=== PATIENT | female | born 1950 | race African-American/Black ===

== ENCOUNTER 2017-04-07 21:05 | Inpatient (IN) | payer BC, MEDICARE ==
[~2017-04-07 21:05] MED LIST: ISOVUE-370 76%-LOCM 1 ML ONE
[2017-04-07] MEDS ORDERED: Adacel (T-DAP) 0.5 ML VIAL ONE (21:31)
[2017-04-07] MEDS ORDERED: Ondansetron HCl/PF 4 MG/2 ML Vial ONE (21:44)
[2017-04-07] MEDS ORDERED: Morphine 4 MG/ML VIAL ONE ×2 (21:44→23:07)
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
[2017-04-07 21:50] LABS: #Eosinphils 0.1 thou/uL (0.0-0.7); #Lymphocytes 1.7 thou/uL (1.20-3.40); #Monocytes 0.7 thou/uL (0.11-0.59); #Neutrophils 8.2 thou/uL (1.40-6.50); %Basophils 0.1 % (0.0-1.0); %Eosinophils 0.8 % (0.0-10.0); %Lymphocytes 15.9 % (21.0-51.0); %Monocytes 6.9 % (0.0-10.0); Hematocrit 37.1 % (36.0-47.0); White Blood Cell (WBC) Count 10.7 thou/uL (4.8-10.8)
[2017-04-07 21:58] LABS: ALT (SGPT) 51 U/L (8-55); AST (SGOT) 96 U/L (5-34); Alkaline Phosphatase 136 U/L (40-150); Anion Gap 13 mmol/L (10-20); BUN (Urea Nitrogen) 23 mg/dL (9.8-20.1); Bilirubin, Total 0.3 mg/dL (0.2-1.2); Calc. Creatinine Clearance 0 mL/min (70-130); Calcium 9.1 mg/dL (7.8-10.44); Carbon Dioxide 29 mmol/L (23-31); Chloride 100 mmol/L (98-107); Estimated GFR-MDRD 35; Globulin 3.6 g/dL (2.4-3.5); Lipase 52 U/L (8-78); Protein, Total 7.3 g/dL (6.0-8.3)
[2017-04-07 22:39] LABS: Bilirubin Negative (Negative); Blood, Urine Small (Negative); Glucose, Urine (Dipstick) Negative (Negative); Ketone, Urine Negative (Negative); Nitrite Negative (Negative); Protein, Urine (Dipstick) Negative (Neg-Trace); Urobilinogen 0.2 mg/dL (0.2-1.0)
[2017-04-07 22:40] LABS: Bacteria/HPF None Seen HPF (None Seen); Hyaline Casts/LPF 0-3 HYALINE CAST LPF (0-3 Hyaline); Squamous Epithelial None Seen HPF (0-3); WBC/HPF 0-3 HPF (0-3)
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
[2017-04-07 23:44] LABS: PTT 26.8 SEC (22.9-36.1); Prothrombin Time 14.1 SEC (12.0-14.7)
[2017-04-08] MEDS ORDERED: Sodium Chloride 0.9% 1,000 ML IV SCH (00:57)
[2017-04-08] MEDS ORDERED: Dextrose 50% Abboject 50 ML SYRINGE SLOW IVP PRN (00:57)
[2017-04-08] MEDS ORDERED: Promethazine HCl 25 MG/ML VIAL IM PRN (00:57)
[2017-04-08] MEDS ORDERED: Rib Fracture Protocol IV SCH (00:57)
[2017-04-08] MEDS ORDERED: HumaLOG 300 UNITS/3 ML VIAL SC PRN (00:57)
[2017-04-08] MEDS ORDERED: Dextrose 5% in Water 1,000 ML IV PRN (00:57)
[2017-04-08] MEDS ORDERED: Ondansetron HCl/PF 4 MG/2 ML Vial IVP PRN (00:57)
[2017-04-08] MEDS ORDERED: Ondansetron ODT 4 MG TAB PO PRN (00:57)
[2017-04-08] MEDS ORDERED: Ketorolac Tromethamine 30 MG/ML VIAL IVP SCH ×3 (01:45→18:00)
[2017-04-08 02:38] VITALS: BMI 29.2
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
[2017-04-08 05:18] LABS: Anion Gap 16 mmol/L (10-20); BUN (Urea Nitrogen) 23 mg/dL (9.8-20.1); Calc. Creatinine Clearance 53 mL/min (70-130); Calcium 8.9 mg/dL (7.8-10.44); Carbon Dioxide 26 mmol/L (23-31); Chloride 105 mmol/L (98-107); Estimated GFR-MDRD 58; Magnesium 2.4 mg/dL (1.6-2.6); Phosphorus 3.6 mg/dL (2.3-4.7)
[2017-04-08 05:23] LABS: Amphetamine Not Detected (NotDetected); Methadone Detected (NotDetected); Methamphetamine Not Detected (NotDetected)
[2017-04-08] MEDS: Acetaminophen 650 MG Suppository PR SCH ×2 (06:18→12:17)
[2017-04-08] MEDS: Ketorolac Tromethamine 30 MG/ML VIAL IVP SCH ×2 (06:20→12:16)
[2017-04-08 07:29] LABS: Hematocrit 30.2 % (36.0-47.0); Red Blood Cell (RBC) Count 3.78 mill/uL (4.20-5.40); White Blood Cell (WBC) Count 8.9 thou/uL (4.8-10.8)
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
[2017-04-08 07:49] LABS: Band 10 % (5-11); Hypochromia SLIGHT = 6-15 cells (100X) (0-5/hpf); Microcytosis SLIGHT = 6-15 cells (100X) (0-5/hpf); Neutrophil 75 % (42-75); Ovalocytes SLIGHT = 2-5 cells (100X) (0-1/hpf); Polychromasia SLIGHT = 2-3 cells (100X) (0-2/hpf); Target Cells SLIGHT = 2-5 cells (100X) (0-1/hpf)
[2017-04-08] MEDS ORDERED: Famotidine/PF 20 mg/2ml Vial SLOW IVP SCH (09:00)
--- NOTE | 2017-04-08 09:57 | CT ---
PRELIMINARY REPORT/[facility]/EMERGENCY AFTER HOURS PROCEDURE: EXAM: CT Head Without Intravenous Contrast CLINICAL HISTORY: 66 years old, female; Condition or disease; Other: Sdh; Patient HX: F/u falcine sdh TECHNIQUE: Axial computed tomography images of the head/brain without intravenous contrast. COMPARISON: CT Brain WO Con 2017-04-07 21:19 FINDINGS: Brain: There has been no significant change in the small subdural hemorrhage along the falx. Age appr opriate atrophy and small vessel ischemic change. No mass effect, midline shift or extra axial fluid collections. Bose-white matter differentiation is normal. Ventricles: Unremarkable. No ventriculomegaly. Bones/joints: Unremarkable. No acute fracture. Soft tissues: Unremarkable. Sinuses: Unremarkable as visualized. No acute sinusitis. Mastoid air cells: Unremarkable as visualized. No mastoid effusion. Orbits: The patient has had bilateral lens replacement surgery. IMPRESSION: Stable subdural hemorrhage along the mid falx. Thank you for allowing us to participate in the care of your patient. Dictated and Authenticated by: Brian Benjamin MD 04/08/2017 5:43 AM Central Time ([place] & [place]) FINAL REPORT HEAD CT WITHOUT CONTRAST: DATE: 04/08/17. COMPARISON: 04/07/17. HISTORY: Reevaluate small subdural hematoma. FINDINGS: I agree with the preliminary [facility] report. Imaged paranasal sinuses/mastoid air cells are well aerat ed. There is no displaced calvarial fracture. There is a linear area of hyperdensity along the midline falx seen on images 17 through 19, unchanged , suggesting a tiny stable subdural hematoma. No midline shift or mass effect. No additional hemorr jossue appreciated. IMPRESSION: Stable tiny subdural hemorrhage along the midline falx. POS: [facility]
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
[2017-04-08] MEDS ORDERED: Rib Fracture Protocol PO SCH (13:00)
[2017-04-08] MEDS: ATROPINE 1% EA EYE SCH ×3 (13:39→21:02)
[2017-04-08] MEDS: PREDNISOLONE 1% EA EYE SCH (13:41)
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
[2017-04-08] MEDS: Gabapentin 100 MG CAP PO SCH ×2 (14:55→21:00)
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
[2017-04-08] MEDS ORDERED: Bupivacaine HCl 0.5%/Epinephrine 1:200,000/PF 30 ml Vial IJ SCH (17:15)
[2017-04-08] MEDS ORDERED: Lidocaine 1% w/Epinephrine 1:200K 30 ML VIAL FS SCH (17:30)
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
[2017-04-08] MEDS: Acetaminophen 500 MG TAB PO SCH (17:53)
[2017-04-08] MEDS: traMADol HCl 50 MG TAB PO SCH (17:53)
[2017-04-08] MEDS ORDERED: Acetaminophen 650 MG Suppository PR SCH (18:00)
--- NOTE | 2017-04-08 18:01 | RAD ---
PORTABLE CHEST: 04/08/17 HISTORY: Assess chest tube placement. Pneumothorax. COMPARISON: Comparison made to exam of 4:25 p.m. FINDINGS/IMPRESSION: A left chest tube has been placed. Tip overlies the left apical region. No significant pneumothorax i dentified on this study. Numerous left rib fractures again noted. Both lungs appear welle aerated and clear. POS: [facility]
[2017-04-08] MEDS: Ibuprofen 600 MG TAB PO SCH (18:05)
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
[2017-04-08] MEDS: traZODone HCl 50 MG TAB PO SCH (20:57)
[2017-04-08] MEDS: Potassium Chloride 10 MEQ TAB PO SCH (20:57)
[2017-04-08] MEDS: Sucralfate 1 GM TAB PO SCH (20:57)
[2017-04-08] MEDS: METHadone HCl 10 MG TAB PO SCH (20:57)
[2017-04-08] MEDS: Pregabalin 75 MG CAP PO SCH (20:59)
[2017-04-08] MEDS: Mirtazapine 15 MG TAB PO SCH (21:00)
[2017-04-08] MEDS: Ondansetron ODT 4 MG TAB PO SCH (21:00)
[2017-04-08] MEDS ORDERED: Atropine Sulfate 1% Ophth Soln 5 ml Bottle EA EYE SCH (21:00)
[2017-04-08] MEDS: Atorvastatin Calcium 40 MG TAB PO SCH (21:00)
[2017-04-08] MEDS: Montelukast Sodium 10 mg Tablet PO SCH (21:00)
[2017-04-08] MEDS: Ferrous Sulfate 325 MG TAB PO SCH (21:00)
[2017-04-08] MEDS ORDERED: TAPENTADOL HCL 75 MG PO SCH (21:00)
[2017-04-08] MEDS: Topiramate 25 MG TAB PO SCH (21:01)
--- NOTE | 2017-04-08 21:56 | OP ---
PREOPERATIVE DIAGNOSES: Concussion of atlanto-occipital ligamentous injury, bilateral rib fractures, left clavicle fracture, left hemopneumothorax progress since this morning to 40% pneumothorax, and a tube thoracostomy. POSTOPERATIVE DIAGNOSES: Concussion of atlanto-occipital ligamentous injury, bilateral rib fractures , left clavicle fracture, left hemopneumothorax progress since this morning to 40% pneumothorax, and need a tube thoracostomy. PROCEDURE: Left tube thoracostomy 32 Romanian. SURGEON: Dr. Kevin Escalante. ANESTHESIA: 1% Xylocaine with epinephrine, 30 mL, mixed with 0.5% Marcaine without epinephrine, 30 m L. DESCRIPTION OF PROCEDURE: The patient is at bedside, left lower chest, sterile technique used to pre pare the area with ChloraPrep and draped in routine fashion. Local anesthetic infiltrated into skin and subcutaneous tissue about the operative site. Transverse skin incision made at the seventh inter costal space, carried down through the skin and subcutaneous tissue and a subcutaneous tunnel created cephalad and local anesthetic infiltrated in the intercostal spaces proximally fifth intercostal. A blunt clamp was used to enter the left chest appreciating a ruiz of air and some bloody drainage. T his was opened by aspirating the clamp and a 32 Romanian chest tube placed, directed apically and poste riorly and then the wound closed with interrupted vertical mattress sutures of 0 silk, securing the t ube with 0 silk suture and sterile dressings applied. Patient tolerated the procedure well. Chest x -ray confirmed good tube placement.
[2017-04-09] MEDS: Acetaminophen 500 MG TAB PO SCH ×4 (00:21→17:59)
[2017-04-09] MEDS: traMADol HCl 50 MG TAB PO SCH ×4 (00:21→18:00)
[2017-04-09] MEDS: Ibuprofen 600 MG TAB PO SCH ×4 (00:21→18:02)
[2017-04-09 04:50] LABS: #Lymphocytes 0.9 thou/uL (1.20-3.40); #Monocytes 0.5 thou/uL (0.11-0.59); #Neutrophils 3.3 thou/uL (1.40-6.50); %Basophils 0.6 % (0.0-1.0); %Eosinophils 0.6 % (0.0-10.0); %Lymphocytes 19.1 % (21.0-51.0); %Monocytes 9.8 % (0.0-10.0); Hematocrit 26.3 % (36.0-47.0); Mean Platelet Volume 8.9 fL (7.4-10.4); Red Blood Cell (RBC) Count 3.22 mill/uL (4.20-5.40); White Blood Cell (WBC) Count 4.8 thou/uL (4.8-10.8)
[2017-04-09 05:11] LABS: Anion Gap 10 mmol/L (10-20); BUN (Urea Nitrogen) 17 mg/dL (9.8-20.1); Calc. Creatinine Clearance 71 mL/min (70-130); Calcium 8.7 mg/dL (7.8-10.44); Carbon Dioxide 30 mmol/L (23-31); Chloride 102 mmol/L (98-107); Estimated GFR-MDRD 81; Magnesium 2.2 mg/dL (1.6-2.6); Phosphorus 3.2 mg/dL (2.3-4.7)
[2017-04-09 05:15] LABS: Critical Call Chemistry NUR.MGD@0515
[2017-04-09] MEDS ORDERED: Potassium Chloride 20 MEQ TAB PO SCH (08:00)
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
[2017-04-09] MEDS: Potassium Chloride 10 MEQ TAB PO SCH ×2 (08:38→21:06)
[2017-04-09] MEDS: Ferrous Sulfate 325 MG TAB PO SCH ×2 (08:40→21:01)
[2017-04-09] MEDS: METHadone HCl 10 MG TAB PO SCH ×3 (08:40→21:03)
[2017-04-09] MEDS: Magnesium Oxide 400 MG TAB PO SCH (08:41)
[2017-04-09] MEDS: Ondansetron ODT 4 MG TAB PO SCH ×2 (08:41→21:05)
[2017-04-09] MEDS: Loratadine 10 MG TAB PO SCH (08:41)
[2017-04-09] MEDS: Pregabalin 75 MG CAP PO SCH ×3 (08:41→21:06)
[2017-04-09] MEDS: Potassium Chloride 20 MEQ TAB PO SCH ×2 (08:41→18:00)
[2017-04-09] MEDS: Gabapentin 100 MG CAP PO SCH ×3 (08:41→21:02)
[2017-04-09] MEDS: Furosemide 40 MG TAB PO SCH (08:41)
[2017-04-09] MEDS: Sucralfate 1 GM TAB PO SCH ×2 (08:42→21:07)
[2017-04-09] MEDS: PREDNISOLONE 1% EA EYE SCH (08:44)
[2017-04-09] MEDS: ATROPINE 1% EA EYE SCH ×4 (08:44→21:14)
[2017-04-09] MEDS ORDERED: DESIPRAMINE HCL 10 MG PO SCH (09:00)
[2017-04-09] MEDS ORDERED: [UNRECOGNIZED DRUG - OTHER] OP SCH (09:00)
[2017-04-09] MEDS ORDERED: PREDNISOLONE ACETATE OP SCH (09:00)
[2017-04-09] MEDS ORDERED: NEPAFENAC OP SCH (09:00)
--- NOTE | 2017-04-09 09:56 | RAD ---
PORTABLE AP CHEST: Date: 04/09/17 HISTORY: Follow-up evaluation. Left-sided thoracostomy tube in place. Left pneumothorax. Left-sided rib fractu res. COMPARISON: 04/07/17. FINDINGS: Left-sided thoracostomy tube remains in place and unchanged in position. No pneumothorax is seen. Mul tiple upper left-sided rib fractures are again seen. Fracture of the distal left clavicle is also aga in present. There is minimal subcutaneous emphysema left lateral chest. Right lung remains clear. Car diac silhouette and pulmonary vasculature are within normal limits. There has been no interval change from the prior exam. IMPRESSION: Stable chest. POS: [facility]
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
--- NOTE | 2017-04-09 14:42 | PRG ---
DATE OF SERVICE: 04/09/2017 NEUROSURGERY PROGRESS NOTE SUBJECTIVE: I saw Ms. Campbell this morning. She is starting her second hospital day with us. She kramer d an MRI scan yesterday and I have reviewed it. Ms. Campbell is feeling well. Her neck is not terribl y sore and she is neurologically intact. She has a chest tube placed for pneumothorax yesterday. This morning, Ms. Campbell is awake and alert. Her vitals are stable. Her neurological examination is completely normal. Her lower cranial nerves are intact and there is no lateralizing motor or sensor y deficits. I reviewed the MRI scan of cervical spine. The apical membrane is definitively intact and apical lig ament is intact. There is no avulsion associated with the alar ligaments. The occipital condyle fra cture is nondisplaced and all mid sagittal measurements are within the range of normal. There is extra fluid in the C1-C2 lateral joints, and there may be increased T2 signal and there is a pical ligament, but the fibers appear to be intact. I had a long discussion with Ms. Campbell. If we miss atlanto-occipital dislocation, this could be a f atal condition. However, she is minimally painful with a head motion. All the CT measurements are w ithin normal limits and the MRI scan may be showing a sprain rather than an avulsion of ligamentous s upport structures. If she is capable of healing this on its own, that is a much better outcome for h er and occipital cervical fusion. An occipital plate C1 and C2 screws would be the treatment of ribera ce if we were concerned about a yocasta atlanto-occipital dislocation, but I am not terribly concerned about that. She will, however, need follow up with her neurosurgeon locally. Her mentioned that he sees a neurosurgeon for his sciatic pain, , in [place], [place]. If Ms. Campbell is stil l here on Thursday, I will try to make calls to that office to ensure that we have continuity of care.
[2017-04-09] MEDS: Atorvastatin Calcium 40 MG TAB PO SCH (21:01)
[2017-04-09] MEDS: Insulin Detemir 100 UNITS/ML 5 UNITS in Pre-Filled Syringe 1 EACH SC SCH (21:02)
[2017-04-09] MEDS: Mirtazapine 15 MG TAB PO SCH (21:05)
[2017-04-09] MEDS: Montelukast Sodium 10 mg Tablet PO SCH (21:05)
[2017-04-09] MEDS: Topiramate 25 MG TAB PO SCH (21:07)
[2017-04-09] MEDS: traZODone HCl 50 MG TAB PO SCH (21:07)
[2017-04-10] MEDS: traMADol HCl 50 MG TAB PO SCH ×4 (00:05→18:22)
[2017-04-10] MEDS: Ibuprofen 600 MG TAB PO SCH ×4 (00:05→18:22)
[2017-04-10] MEDS: Acetaminophen 500 MG TAB PO SCH ×4 (00:05→18:23)
[2017-04-10 05:27] LABS: #Eosinphils 0.1 thou/uL (0.0-0.7); #Lymphocytes 0.8 thou/uL (1.20-3.40); #Monocytes 0.4 thou/uL (0.11-0.59); #Neutrophils 4.1 thou/uL (1.40-6.50); %Basophils 0.2 % (0.0-1.0); %Eosinophils 1.6 % (0.0-10.0); %Lymphocytes 15.2 % (21.0-51.0); %Monocytes 7.2 % (0.0-10.0); Hematocrit 25.6 % (36.0-47.0); Red Blood Cell (RBC) Count 3.13 mill/uL (4.20-5.40); White Blood Cell (WBC) Count 5.4 thou/uL (4.8-10.8)
[2017-04-10 05:33] LABS: Hemoglobin A1c 5.5 % (4.0-6.0)
[2017-04-10 05:46] LABS: Anion Gap 10 mmol/L (10-20); BUN (Urea Nitrogen) 17 mg/dL (9.8-20.1); Calc. Creatinine Clearance 64 mL/min (70-130); Calcium 8.9 mg/dL (7.8-10.44); Carbon Dioxide 29 mmol/L (23-31); Chloride 102 mmol/L (98-107); Estimated GFR-MDRD 72
--- NOTE | 2017-04-10 07:59 | PRG ---
DATE OF SERVICE: 04/10/2017 Ms. Campbell is a 66-year-old female who I saw in her room this morning. She is still in her cervical collar and a [place] collar has been ordered from [facility] that she can wear in t he shower. She has 4/5 strength in bilateral upper extremities with no dermatomal sensory loss in th e upper extremities. She has an atlanto-occipital fracture dislocation, this is approximately 5 [address] o n her CT scan admission. This will likely be something that we can treat in a cervical collar over t he course of 8-12 weeks. Her vital signs overnight have been stable. There were no acute events ove rnight. There are no new neurologic deficits on exam. If there are any further questions, please feel free to contact Neurosurgery.
[2017-04-10 08:41] LABS: Magnesium 2.2 mg/dL (1.6-2.6); Phosphorus 2.8 mg/dL (2.3-4.7)
[2017-04-10] MEDS: Pregabalin 75 MG CAP PO SCH ×3 (09:13→21:52)
[2017-04-10] MEDS: Ondansetron ODT 4 MG TAB PO SCH ×2 (09:13→23:51)
[2017-04-10] MEDS: Potassium Chloride 10 MEQ TAB PO SCH ×2 (09:15→21:56)
[2017-04-10] MEDS: Ferrous Sulfate 325 MG TAB PO SCH ×2 (09:16→21:53)
[2017-04-10] MEDS: Furosemide 40 MG TAB PO SCH (09:16)
[2017-04-10] MEDS: Loratadine 10 MG TAB PO SCH (09:16)
[2017-04-10] MEDS: Senokot 8.6 MG TAB PO SCH (09:16)
[2017-04-10] MEDS: Docusate 100 MG CAP PO SCH (09:16)
[2017-04-10] MEDS: Sucralfate 1 GM TAB PO SCH ×2 (09:17→21:55)
[2017-04-10] MEDS: METHadone HCl 10 MG TAB PO SCH ×3 (09:17→21:53)
[2017-04-10] MEDS: Magnesium Oxide 400 MG TAB PO SCH (09:17)
[2017-04-10] MEDS: Gabapentin 100 MG CAP PO SCH ×3 (09:17→21:56)
[2017-04-10] MEDS: PREDNISOLONE 1% EA EYE SCH (09:19)
[2017-04-10] MEDS: ATROPINE 1% EA EYE SCH ×4 (09:19→21:58)
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
--- NOTE | 2017-04-10 10:37 | PRG ---
DATE OF SERVICE: 04/10/2017 I saw Ms. Campbell in her room on the surgical floor this morning. She and her were resting as I entered the room. She wakes up easily and answers questions. She is neurologically intact. Ms. Campbell has aches and pains from her clavicle fracture. She has low back pain, but she was able to ge t up yesterday. She stood for a while and she could feel the floor. She kept her balance. She is h appy with her mobilization. Ms. Campbell does not complain much about neck pain. She is rotating her head in the collar and this d oes not cause any discomfort to her. Although, I have some concern about the ligamentous structures at the craniocervical junction and the atlantoaxial joint, I do believe that the ligaments are still intact, and I would like to give her a chance to heal this without an occipital cervical fusion. Dr. Diaz in [place], [place] is the local neurosurgeon and knows her . I will make contact wi th his office on Thursday to arrange followup for her. She will need upright x-rays before leaving the hospital to ensure the craniocervical relationship is maintained in an upright position.
--- NOTE | 2017-04-10 10:44 | RAD ---
FRONTAL RADIOGRAPH CHEST: Date: 04-10-17 Comparison: 04-09-17 History: Pneumothorax. FINDINGS: There are numerous left sided rib fractures noted, as seen on recent CT of the chest. There is a dist al left clavicle fracture as well. There is a left sided chest tube present. Heart and mediastinal contours are stable. No discrete pneumothorax is evident on the left. IMPRESSION: Stable appearance of the chest. POS: [facility]
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
--- NOTE | 2017-04-10 17:07 | RAD ---
CHEST ONE VIEW 04/10/17 HISTORY: Chest tube removal. COMPARISON: Chest one view same day. FINDINGS: Interval removal of the left thoracostomy tube with a trace left apical pneumothorax. Multiple left s ided rib fractures with small hemothorax. There is a fracture of the distal left clavicle into the ba se of the right coracoid process. IMPRESSION: Interval removal of the thoracostomy tube with trace left apical pneumothorax. POS: [facility]
[2017-04-10] MEDS: Topiramate 25 MG TAB PO SCH (21:53)
[2017-04-10] MEDS: Atorvastatin Calcium 40 MG TAB PO SCH (21:53)
[2017-04-10] MEDS: traZODone HCl 50 MG TAB PO SCH (21:53)
[2017-04-10] MEDS: Montelukast Sodium 10 mg Tablet PO SCH (21:55)
[2017-04-10] MEDS: Mirtazapine 15 MG TAB PO SCH (21:57)
[2017-04-10] MEDS: Insulin Detemir 100 UNITS/ML 5 UNITS in Pre-Filled Syringe 1 EACH SC SCH (22:13)
[2017-04-11] MEDS: Ibuprofen 600 MG TAB PO SCH ×4 (01:22→18:18)
[2017-04-11] MEDS: traMADol HCl 50 MG TAB PO SCH ×4 (01:23→18:18)
[2017-04-11] MEDS: Acetaminophen 500 MG TAB PO SCH ×4 (01:23→18:19)
[2017-04-11] MEDS: Pregabalin 75 MG CAP PO SCH ×3 (08:41→22:07)
[2017-04-11] MEDS: Loratadine 10 MG TAB PO SCH (08:42)
[2017-04-11] MEDS: Sucralfate 1 GM TAB PO SCH ×2 (08:42→22:09)
[2017-04-11] MEDS: METHadone HCl 10 MG TAB PO SCH ×3 (08:43→22:09)
[2017-04-11] MEDS: Docusate 100 MG CAP PO SCH (08:43)
[2017-04-11] MEDS: Potassium Chloride 10 MEQ TAB PO SCH ×2 (08:43→22:08)
[2017-04-11] MEDS: Gabapentin 100 MG CAP PO SCH ×3 (08:43→22:09)
[2017-04-11] MEDS: Furosemide 40 MG TAB PO SCH (08:43)
[2017-04-11] MEDS: Senokot 8.6 MG TAB PO SCH (08:43)
[2017-04-11] MEDS: Ferrous Sulfate 325 MG TAB PO SCH ×2 (08:43→22:09)
[2017-04-11] MEDS: Ondansetron ODT 4 MG TAB PO SCH ×2 (08:44→22:08)
[2017-04-11] MEDS: PREDNISOLONE 1% EA EYE SCH (09:46)
[2017-04-11] MEDS: ATROPINE 1% EA EYE SCH ×4 (09:46→22:10)
[2017-04-11] MEDS: Magnesium Oxide 400 MG TAB PO SCH (09:50)
--- NOTE | 2017-04-11 10:49 | PRG ---
DATE OF SERVICE: 04/11/2017 SUBJECTIVE: I saw Ms. Campbell this morning. She started her fourth hospital day with us. Yesterday' s x-rays showed normal configuration of the craniocervical junction. These were done in a collar. S he is going to remain in a collar for the next 8 weeks. From a neurosurgical perspective, she can go any time. She will need to follow up with her local neurosurgeon in [place], [place], Dr. Diaz. Our office will try to make contact with his office on Thursday. Before leaving, she should have a dis k with all her imaging studies and take that with her.
--- NOTE | 2017-04-11 11:08 | PRG ---
DATE OF SERVICE: 04/11/2017 Ms. Campbell is a 66-year-old female who I saw this morning. This morning, she has a hemoglobin of 8.4 , red blood cell count is 3.13, hematocrit is 25.7. Her platelet count is 124. She is sitting up in her chair when I came in this morning with a cervical collar in place. She has no new neurologic de ficits on exam. She will be following up with Dr. Diaz in [place], [place]. He is the local neurosu rgeon that knows her . She will follow up with him with upright x-rays before leaving the [facility] to ensure craniocervical relationship was maintained in the upright position. She continued to mobilize today. She complains of some trapezius and shoulder pain bilaterally today in which she is receiving some muscle relaxants for. If there are any further questions, please feel free to contact Neurosurgery.
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
--- NOTE | 2017-04-11 15:26 | RAD ---
PORTABLE AP CHEST XRAY: DATE: 04/11/17. HISTORY: Followup chest tube removal. COMPARISON: 04/10/17. FINDINGS: Multiple mildly displaced left-sided rib fractures are again seen. Small left pleural effusion is ag ain noted. No definite pneumothorax is appreciated on this exam. The right lung is clear. Cardiac silhouette and pulmonary vasculature are within normal limits. Fracture of the distal left clavicle is again seen. No other interval change. IMPRESSION: 1. Multiple left-sided rib fractures with tiny left pleural effusion. A definite pneumothorax is no t delineated on this exam. 2. Stable distal left clavicle fracture. POS: [facility]
[2017-04-11] MEDS: traZODone HCl 50 MG TAB PO SCH (22:07)
[2017-04-11] MEDS: Montelukast Sodium 10 mg Tablet PO SCH (22:07)
[2017-04-11] MEDS: Atorvastatin Calcium 40 MG TAB PO SCH (22:08)
[2017-04-11] MEDS: Mirtazapine 15 MG TAB PO SCH (22:08)
[2017-04-11] MEDS: Topiramate 25 MG TAB PO SCH (22:09)
[2017-04-11] MEDS: Insulin Detemir 100 UNITS/ML 5 UNITS in Pre-Filled Syringe 1 EACH SC SCH (22:10)
[2017-04-12] MEDS: Ibuprofen 600 MG TAB PO SCH ×4 (00:43→17:46)
[2017-04-12] MEDS: traMADol HCl 50 MG TAB PO SCH ×4 (00:43→17:46)
[2017-04-12] MEDS: Acetaminophen 500 MG TAB PO SCH ×4 (00:43→17:46)
--- NOTE | 2017-04-12 07:58 | RAD ---
PORTABLE AP CHEST XRAY: DATE: 04/12/17. HISTORY: Followup pneumothorax. Patient with left-sided rib fractures. COMPARISON: 04/11/17. FINDINGS: Again noted are multiple left-sided rib fractures with probable tiny left pleural effusion again pres ent. No obvious pneumothorax is delineated on this examination. Right lung remains clear. Cardiac silhouette and pulmonary vasculature are within normal limits. There is increased density in the lef t hilar region, this is likely related to slight patient rotation and accentuation of pulmonary vascu lature. This is a stable finding compared to multiple prior chest x-rays. No other interval change. IMPRESSION: Multiple left-sided rib fractures and tiny left pleural effusion. No definite pneumothorax is visual ized. POS: SUSANA
[2017-04-12] MEDS ORDERED: Meclizine HCl 25 MG TAB PO PRN (09:17)
--- NOTE | 2017-04-12 09:27 | PRG ---
NEUROSURGERY PROGRESS NOTE DATE OF SERVICE: 04/12/2017 Ms. Campbell got up yesterday with the assistance of Physical Therapy and had better day walking than t he previous day. She is starting to feel more comfortable about taking care of herself at home. She continues to wear her cervical collar as instructed. Ms. Campbell will need a [place] collar for showers and a [place] J collar for the rest of the time. The collars can be changed only when she is flat in bed and her head is kept straight. She will ne ed to wear these for 2 months, in my opinion. I am going to speak with her local neurosurgeon about followup. This is Dr. Diaz in [place], [place].
[2017-04-12 09:29] LABS: #Eosinphils 0.1 thou/uL (0.0-0.7); #Lymphocytes 0.6 thou/uL (1.20-3.40); #Monocytes 0.3 thou/uL (0.11-0.59); #Neutrophils 4.4 thou/uL (1.40-6.50); %Basophils 0.3 % (0.0-1.0); %Eosinophils 2.3 % (0.0-10.0); %Lymphocytes 11.4 % (21.0-51.0); %Monocytes 5.5 % (0.0-10.0); Hematocrit 29.5 % (36.0-47.0); Mean Platelet Volume 8.7 fL (7.4-10.4); Red Blood Cell (RBC) Count 3.57 mill/uL (4.20-5.40); White Blood Cell (WBC) Count 5.5 thou/uL (4.8-10.8)
[2017-04-12] MEDS: Pregabalin 75 MG CAP PO SCH ×3 (09:30→19:59)
[2017-04-12] MEDS: Potassium Chloride 10 MEQ TAB PO SCH ×2 (09:31→20:00)
[2017-04-12] MEDS: Ferrous Sulfate 325 MG TAB PO SCH ×2 (09:31→19:59)
[2017-04-12] MEDS: Gabapentin 100 MG CAP PO SCH ×3 (09:32→19:59)
[2017-04-12] MEDS: Loratadine 10 MG TAB PO SCH (09:33)
[2017-04-12] MEDS: Magnesium Oxide 400 MG TAB PO SCH (09:33)
[2017-04-12] MEDS: Docusate 100 MG CAP PO SCH (09:33)
[2017-04-12] MEDS: Senokot 8.6 MG TAB PO SCH (09:33)
[2017-04-12] MEDS: Furosemide 40 MG TAB PO SCH (09:33)
[2017-04-12] MEDS: METHadone HCl 10 MG TAB PO SCH ×3 (09:34→19:59)
[2017-04-12] MEDS: Sucralfate 1 GM TAB PO SCH ×2 (09:34→19:57)
[2017-04-12] MEDS: Ondansetron ODT 4 MG TAB PO SCH ×2 (09:34→19:58)
[2017-04-12] MEDS: ATROPINE 1% EA EYE SCH ×5 (09:46→22:11)
[2017-04-12] MEDS: PREDNISOLONE 1% EA EYE SCH (09:47)
[2017-04-12 09:49] LABS: Anion Gap 15 mmol/L (10-20); BUN (Urea Nitrogen) 23 mg/dL (9.8-20.1); Calc. Creatinine Clearance 45 mL/min (70-130); Calcium 9.1 mg/dL (7.8-10.44); Carbon Dioxide 27 mmol/L (23-31); Chloride 97 mmol/L (98-107); Estimated GFR-MDRD 48; Magnesium 2.2 mg/dL (1.6-2.6); Phosphorus 3.2 mg/dL (2.3-4.7)
[2017-04-12] MEDS: Scopolamine 1.5 mg/72 hour Patch TD SCH (13:30)
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
[2017-04-12] MEDS: Bisacodyl 10 MG SUPP PR SCH (15:27)
[2017-04-12] MEDS: Montelukast Sodium 10 mg Tablet PO SCH (19:57)
[2017-04-12] MEDS: Topiramate 25 MG TAB PO SCH (19:57)
[2017-04-12] MEDS: Mirtazapine 15 MG TAB PO SCH (19:58)
[2017-04-12] MEDS: traZODone HCl 50 MG TAB PO SCH (19:59)
[2017-04-12] MEDS: Atorvastatin Calcium 40 MG TAB PO SCH (19:59)
[2017-04-12] MEDS: Senokot S 8.6-50 MG TAB PO SCH (20:00)
[2017-04-12] MEDS: Insulin Detemir 100 UNITS/ML 5 UNITS in Pre-Filled Syringe 1 EACH SC SCH (21:59)
[2017-04-13] MEDS: Ibuprofen 600 MG TAB PO SCH ×4 (00:53→18:35)
[2017-04-13] MEDS: traMADol HCl 50 MG TAB PO SCH ×4 (00:53→18:35)
[2017-04-13] MEDS: Acetaminophen 500 MG TAB PO SCH ×4 (00:54→18:36)
[2017-04-13 05:18] LABS: #Eosinphils 0.1 thou/uL (0.0-0.7); #Lymphocytes 0.8 thou/uL (1.20-3.40); #Monocytes 0.4 thou/uL (0.11-0.59); #Neutrophils 3.4 thou/uL (1.40-6.50); %Basophils 0.2 % (0.0-1.0); %Lymphocytes 16.9 % (21.0-51.0); %Monocytes 8.8 % (0.0-10.0); Hematocrit 28.4 % (36.0-47.0); Mean Platelet Volume 9.3 fL (7.4-10.4); Red Blood Cell (RBC) Count 3.48 mill/uL (4.20-5.40); White Blood Cell (WBC) Count 4.7 thou/uL (4.8-10.8)
[2017-04-13 05:52] LABS: Anion Gap 10 mmol/L (10-20); BUN (Urea Nitrogen) 26 mg/dL (9.8-20.1); Calc. Creatinine Clearance 48 mL/min (70-130); Calcium 9.2 mg/dL (7.8-10.44); Carbon Dioxide 31 mmol/L (23-31); Chloride 99 mmol/L (98-107); Estimated GFR-MDRD 51; Magnesium 2.5 mg/dL (1.6-2.6); Phosphorus 3.9 mg/dL (2.3-4.7)
--- NOTE | 2017-04-13 06:47 | PRG ---
DATE OF SERVICE: 04/13/2017 Ms. Campbell is a 66-year-old female who I saw in her this morning. There have been no acute events ov ernight and her vital signs have been stable. Today, it is likely that she will leave the hospital. Before she leaves she needs to have all of her imaging on a CD to take to her neurosurgeon in [facility]. She is here temporarily for her daughter's graduation from [employer]. This morning her labs, hem atology, red blood cell count is 3.48. White blood cell count 4.7, hemoglobin is 9.2, hematocrit is 28.4. On chemistry exam, potassium is 3.4, BUN is 26, creatinine was 1.27. Her glucose is 79. Ches t x-ray was done yesterday that shows multiple left-sided rib fractures and a tiny left pleural effus ion, no pneumothorax was visualized. On exam, she has good strength in the upper and lower extremiti es and there are no dermatomal sensory loss. If there are any further questions, please feel free to contact Neurosurgery. She can continue to wo rk with physical therapy until she leaves the hospital.
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
[2017-04-13] MEDS ORDERED: Potassium Chloride 20 MEQ TAB PO SCH (08:45)
[2017-04-13] MEDS ORDERED: Atropine Sulfate 1% Ophth Soln 5 ml Bottle EA EYE SCH (09:00)
[2017-04-13] MEDS: Polyethylene Glycol 3350 17 GM Packet PO SCH (09:44)
[2017-04-13] MEDS: Docusate 100 MG CAP PO SCH (09:45)
[2017-04-13] MEDS: Ondansetron ODT 4 MG TAB PO SCH ×2 (09:46→22:22)
[2017-04-13] MEDS: Gabapentin 100 MG CAP PO SCH (09:46)
[2017-04-13] MEDS: Pregabalin 75 MG CAP PO SCH ×3 (09:48→22:21)
[2017-04-13] MEDS: Sucralfate 1 GM TAB PO SCH ×2 (09:48→22:19)
[2017-04-13] MEDS: Potassium Chloride 10 MEQ TAB PO SCH ×2 (09:48→22:22)
[2017-04-13] MEDS: Furosemide 40 MG TAB PO SCH (09:49)
[2017-04-13] MEDS: Senokot 8.6 MG TAB PO SCH (09:49)
[2017-04-13] MEDS: Magnesium Oxide 400 MG TAB PO SCH (09:49)
[2017-04-13] MEDS: Loratadine 10 MG TAB PO SCH (09:50)
[2017-04-13] MEDS: METHadone HCl 10 MG TAB PO SCH ×3 (09:50→22:19)
[2017-04-13] MEDS: Ferrous Sulfate 325 MG TAB PO SCH ×2 (09:50→22:22)
[2017-04-13] MEDS: Bisacodyl 10 MG SUPP PR SCH ×2 (09:51→10:19)
[2017-04-13] MEDS: Senokot S 8.6-50 MG TAB PO SCH ×3 (09:51→23:34)
[2017-04-13] MEDS: cloNIDine 0.1 MG TAB PO SCH ×3 (13:03→23:34)
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
[2017-04-13] MEDS: traZODone HCl 50 MG TAB PO SCH (22:20)
[2017-04-13] MEDS: Atorvastatin Calcium 40 MG TAB PO SCH (22:20)
[2017-04-13] MEDS: Mirtazapine 15 MG TAB PO SCH (22:22)
[2017-04-13] MEDS: Montelukast Sodium 10 mg Tablet PO SCH (22:22)
[2017-04-13] MEDS: PREDNISOLONE 1% EA EYE SCH (22:24)
[2017-04-13] MEDS: Insulin Detemir 100 UNITS/ML 5 UNITS in Pre-Filled Syringe 1 EACH SC SCH (22:24)
[2017-04-13] MEDS: Topiramate 25 MG TAB PO SCH (22:24)
[2017-04-14] MEDS: traMADol HCl 50 MG TAB PO SCH ×4 (01:13→18:06)
[2017-04-14] MEDS: Acetaminophen 500 MG TAB PO SCH ×4 (01:14→18:06)
[2017-04-14] MEDS: Ibuprofen 600 MG TAB PO SCH ×4 (01:14→18:06)
[2017-04-14] MEDS: cloNIDine 0.1 MG TAB PO SCH ×4 (06:28→22:12)
--- NOTE | 2017-04-14 07:46 | PRG ---
DATE OF SERVICE: 04/14/2017 SUBJECTIVE: I saw Ms. Campbell this morning. She is awake, alert and doing well. Her collar fits bet ter with the back of it appropriately attached. She still does not have a [place] collar at bed side for showers. We can make that happen today. I spent some time yesterday and today arranging her follow up. I have a call into Dr. Brian Diaz in [place], [place], neurosurgeon, who has her as the patient. Dr. Diaz has not call me ba ck on my cell phone yet, but I anticipate the call sometime today. We will make arrangements for [facility] for her craniocervical injury and occipital condyle fracture.
--- NOTE | 2017-04-14 08:18 | PRG ---
DATE OF SERVICE: 04/14/2017 Ms. Campbell is a 66-year-old female who I saw in her room this morning. Overnight, there have been no acute events. She has no new neurologic deficits on exam. All of her imaging and notes have been c opied for her to take back to her local neurosurgeon in [place] where she will be following up. It i s likely that she will be discharged today. If there is any questions, please feel free to contact [facility]
[2017-04-14] MEDS: Pregabalin 75 MG CAP PO SCH ×3 (09:01→22:06)
[2017-04-14] MEDS: Ferrous Sulfate 325 MG TAB PO SCH ×2 (09:02→22:13)
[2017-04-14] MEDS: Potassium Chloride 10 MEQ TAB PO SCH ×2 (09:02→22:13)
[2017-04-14] MEDS: Loratadine 10 MG TAB PO SCH (09:02)
[2017-04-14] MEDS: Sucralfate 1 GM TAB PO SCH ×2 (09:02→22:17)
[2017-04-14] MEDS: Furosemide 40 MG TAB PO SCH (09:02)
[2017-04-14] MEDS: Ondansetron ODT 4 MG TAB PO SCH ×2 (09:02→22:08)
[2017-04-14] MEDS: Magnesium Oxide 400 MG TAB PO SCH (09:02)
[2017-04-14] MEDS: Docusate 100 MG CAP PO SCH (09:02)
[2017-04-14] MEDS: Senokot 8.6 MG TAB PO SCH (09:03)
[2017-04-14] MEDS: Bisacodyl 10 MG SUPP PR SCH (09:03)
[2017-04-14] MEDS: Polyethylene Glycol 3350 17 GM Packet PO SCH (09:03)
[2017-04-14] MEDS: METHadone HCl 10 MG TAB PO SCH ×3 (09:03→22:08)
[2017-04-14] MEDS: Senokot S 8.6-50 MG TAB PO SCH ×2 (09:04→22:08)
[2017-04-14] MEDS: Cyclobenzaprine 10 MG TAB PO PRN (15:02)
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
[2017-04-14] MEDS: traZODone HCl 50 MG TAB PO SCH (22:07)
[2017-04-14] MEDS: Atorvastatin Calcium 40 MG TAB PO SCH (22:08)
[2017-04-14] MEDS: Mirtazapine 15 MG TAB PO SCH (22:13)
[2017-04-14] MEDS: Montelukast Sodium 10 mg Tablet PO SCH (22:13)
[2017-04-14] MEDS: Atropine Sulfate 1% Ophth Soln 5 ml Bottle EA EYE SCH ×2 (22:17→22:19)
[2017-04-14] MEDS: PREDNISOLONE 1% EA EYE SCH (22:22)
[2017-04-14] MEDS: Insulin Detemir 100 UNITS/ML 5 UNITS in Pre-Filled Syringe 1 EACH SC SCH (22:24)
[2017-04-14] MEDS: Topiramate 25 MG TAB PO SCH (22:24)
[2017-04-15] MEDS: Acetaminophen 500 MG TAB PO SCH ×4 (00:04→18:32)
[2017-04-15] MEDS: Ibuprofen 600 MG TAB PO SCH ×4 (00:04→18:31)
[2017-04-15] MEDS: traMADol HCl 50 MG TAB PO SCH ×4 (00:06→18:31)
[2017-04-15] MEDS: cloNIDine 0.1 MG TAB PO SCH ×4 (04:07→23:48)
[2017-04-15] MEDS: Cyclobenzaprine 10 MG TAB PO PRN (04:07)
--- NOTE | 2017-04-15 06:09 | PRG ---
DATE OF SERVICE: 04/15/2017 I saw Ms. Campbell on rounds this morning. She was resting comfortably as I entered the room. She rep orts to me that she was able to get out of her room and walk to the nurses station yesterday. She di d not make a lap around the floor. She felt a little unsteady on her feet and her left clavicle frac ture is preventing her from using a walker. She used a cane. She tells me she does not have much pa in at all at the base of the skull and the top of her neck as long she keeps her head still. Recorded vital signs are stable. I do not find any new neurological deficit. The collar is in posit ion, but her neck is leaning a little towards the left shoulder. She wants to pull the shoulder up t o make her clavicle feels a bit better. Our neurosurgery office has been in touch with the office in [place], [place]. We are going to arrjuan r nieves followup for her. I have not communicated directly with Dr. Griffin yet, but will attempt to do s o. There was good craniocervical alignment on upright x-ray during his hospitalization and I think i f she remains in a C-collar for 2 months, she will give her occipital condyle chance to heal and a re peat MRI scan might be used to assess craniocervical ligaments at that time.
--- NOTE | 2017-04-15 07:10 | PRG ---
DATE OF SERVICE: 04/15/2017 Ms. Campbell is a 66-year-old female who I saw in her room this morning. Overnight, there have been no acute events. She has no new neurologic deficits on exam. We arranged follow up with her local leonor rosurgeon in [place]. All images have been copied on a CD and given to her with progress reports. S he should remain in a cervical collar for 2 months and we recommend a repeat MRI scan of her cranioce rvical junction after about 2 months. This will also give her left occipital condyle a chance to jhony gutierrez. She is able to ambulate, but she has not walked around the surgical unit yet. She explains that she does not have any neck pain at this time. She can be discharged at any time and taken back to [place], [place] where she lives. We will look for that to happen today. If there are any further questions, please feel free to contact Neurosurgery. In the meantime, she c an continue to work with physical therapy and ambulate as much as possible.
[2017-04-15] MEDS: Pregabalin 75 MG CAP PO SCH ×3 (09:40→21:05)
[2017-04-15] MEDS: Magnesium Oxide 400 MG TAB PO SCH (09:41)
[2017-04-15] MEDS: Potassium Chloride 10 MEQ TAB PO SCH ×2 (09:41→21:08)
[2017-04-15] MEDS: METHadone HCl 10 MG TAB PO SCH ×3 (09:41→21:09)
[2017-04-15] MEDS: Loratadine 10 MG TAB PO SCH (09:41)
[2017-04-15] MEDS: Ferrous Sulfate 325 MG TAB PO SCH ×2 (09:42→21:09)
[2017-04-15] MEDS: Ondansetron ODT 4 MG TAB PO SCH ×2 (09:42→21:07)
[2017-04-15] MEDS: Furosemide 40 MG TAB PO SCH (09:42)
[2017-04-15] MEDS: Sucralfate 1 GM TAB PO SCH ×2 (09:43→21:12)
[2017-04-15] MEDS: Bisacodyl 10 MG SUPP PR SCH (09:43)
[2017-04-15] MEDS: Docusate 100 MG CAP PO SCH (09:43)
[2017-04-15] MEDS: Polyethylene Glycol 3350 17 GM Packet PO SCH (09:43)
[2017-04-15] MEDS: Senokot S 8.6-50 MG TAB PO SCH ×2 (09:43→21:07)
[2017-04-15] MEDS: Senokot 8.6 MG TAB PO SCH (09:43)
[2017-04-15] MEDS: Scopolamine 1.5 mg/72 hour Patch TD SCH (14:46)
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
[2017-04-15] MEDS: PREDNISOLONE 1% EA EYE SCH (21:04)
[2017-04-15] MEDS: Insulin Detemir 100 UNITS/ML 5 UNITS in Pre-Filled Syringe 1 EACH SC SCH (21:06)
[2017-04-15] MEDS: Montelukast Sodium 10 mg Tablet PO SCH (21:07)
[2017-04-15] MEDS: traZODone HCl 50 MG TAB PO SCH (21:08)
[2017-04-15] MEDS: Mirtazapine 15 MG TAB PO SCH (21:08)
[2017-04-15] MEDS: Atorvastatin Calcium 40 MG TAB PO SCH (21:08)
[2017-04-15] MEDS: Topiramate 25 MG TAB PO SCH (21:13)
[2017-04-16] MEDS: traMADol HCl 50 MG TAB PO SCH ×3 (00:51→12:32)
[2017-04-16] MEDS: Acetaminophen 500 MG TAB PO SCH ×3 (00:52→12:31)
[2017-04-16] MEDS: Ibuprofen 600 MG TAB PO SCH ×3 (00:52→12:32)
[2017-04-16] MEDS: cloNIDine 0.1 MG TAB PO SCH (05:24)
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
[2017-04-16] MEDS: Pregabalin 75 MG CAP PO SCH (08:56)
[2017-04-16] MEDS: Magnesium Oxide 400 MG TAB PO SCH (08:56)
[2017-04-16] MEDS: Ondansetron ODT 4 MG TAB PO SCH (08:57)
[2017-04-16] MEDS: Loratadine 10 MG TAB PO SCH (08:57)
[2017-04-16] MEDS: Furosemide 40 MG TAB PO SCH (08:57)
[2017-04-16] MEDS: Docusate 100 MG CAP PO SCH (08:58)
[2017-04-16] MEDS: Ferrous Sulfate 325 MG TAB PO SCH (08:58)
[2017-04-16] MEDS: Bisacodyl 10 MG SUPP PR SCH (08:58)
[2017-04-16] MEDS: Potassium Chloride 10 MEQ TAB PO SCH (08:58)
[2017-04-16] MEDS: METHadone HCl 10 MG TAB PO SCH (08:58)
[2017-04-16] MEDS: Sucralfate 1 GM TAB PO SCH (08:59)
[2017-04-16] MEDS: Polyethylene Glycol 3350 17 GM Packet PO SCH (08:59)
[2017-04-16] MEDS: Senokot S 8.6-50 MG TAB PO SCH (08:59)
[2017-04-16] MEDS: Senokot 8.6 MG TAB PO SCH (08:59)
[2017-04-16 10:18] VITALS: BP 119/81; TEMP 98
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
== END 2017-04-16 13:42 | disposition home or self-care (01) | DRG 964 ==
LOC: ERS 21:05 → IMCU/EMU 04-08 → SURG A 04-09 12:53
PROVIDERS: ADMIT Surgery; ATTEND Surgery
PROC: 0W9B30Z Drainage of Left Pleural Cavity with Drainage Device, Percutaneous Approach (ICD-10-PCS; principal; 2017-04-08)
DX: S27.2XXA Traumatic hemopneumothorax, initial encounter (principal); S06.5X9A Traumatic subdural hemorrhage with loss of consciousness of unspecified duration, initial encounter; S22.43XA Multiple fractures of ribs, bilateral, initial encounter for closed fracture; N17.9 Acute kidney failure, unspecified; S13.111A Dislocation of C0/C1 cervical vertebrae, initial encounter; E11.9 Type 2 diabetes mellitus without complications; M79.7 Fibromyalgia; M19.90 Unspecified osteoarthritis, unspecified site; V44.5XXA Car driver injured in collision with heavy transport vehicle or bus in traffic accident, initial encounter; S42.002A Fracture of unspecified part of left clavicle, initial encounter for closed fracture; E87.6 Hypokalemia; G89.29 Other chronic pain
CPT/HCPCS: 36415; 36416; 51702; 70450; 70498; 71010; 71260; 72040; 72125; 72141; 72170; 74177; 80048; 80053; 80306; 81003; 81015; 83036; 83690; 83735; 84100; 85025; 85610; 85730; 90471; 90715; 94640; 96361; 96374; 96376; G0390; G8978-GP-CL; G8979-GP-CJ; J0670; J1815; J1885; J2270; J2405; J7620; Q0162